=== PATIENT | female | born 1995 | race Caucasian/White ===

== ENCOUNTER 2017-06-12 06:59 | Inpatient (IN) | payer OTHER ==
[~2017-06-12] VITALS: Ht 170.2 cm; Wt 71.4 kg
[~2017-06-12 06:59] MED LIST: BACITRACIN 50,000 UNIT ONE; BUPIVACAINE/PF 0.5% ONE; EPINEPHRINE 1 MG/ML, 1ML ONE; THROMBIN 5,000 UNIT VIAL TP ONE
[2017-06-12 07:24] VITALS: BP 110/76
[2017-06-12 08:34] LABS: ASPARTATE AMINO TRANSFERASE 27 U/L (15-37); BLOOD UREA NITROGEN 10 mg/dL (7-18)
[2017-06-12 08:36] LABS: HCG UR LOT HCG7030192
[2017-06-12] MEDS ORDERED: PROPOFOL 10 MG/ML, 20ML ONE ×2 (08:51→09:10)
[2017-06-12] MEDS ORDERED: KETAMINE 10 MG/ML, 20ML ONE (09:00)
[2017-06-12] MEDS ORDERED: MIDAZOLAM 1 MG/ML, 2ML ONE (09:00)
[2017-06-12] MEDS: DROSPIRENONE ETHINYL ESTRADIOL PO SCH ×2 (09:00→19:13)
[2017-06-12] MEDS ORDERED: PROPOFOL 50 ML ONE ×3 (09:01→12:53)
[2017-06-12] MEDS ORDERED: FENTANYL PF 250 MCG/5ML ONE (09:01)
[2017-06-12 09:07] LABS: HCG UR OBC PASS
[2017-06-12] MEDS ORDERED: DEXAMETHASONE 4 MG/ML, 1ML ONE (09:10)
[2017-06-12] MEDS ORDERED: CEFAZOLIN 1,000 MG ONE (09:10)
[2017-06-12] MEDS ORDERED: ONDANSETRON 2MG/ML, 2ML ONE ×3 (09:10→11:40)
[2017-06-12] MEDS ORDERED: SCOPOLAMINE PATCH, 1.5MG PATCH.TD72 TD ONE ×2 (10:12→10:37)
[2017-06-12] MEDS ORDERED: LIDOCAINE GEL 2%, 5ML ONE (10:19)
[2017-06-12] MEDS ORDERED: ROCURONIUM 10 MG/ML,10ML ONE (10:20)
[2017-06-12] MEDS ORDERED: LIDOCAINE-MPF 2% ,5ML ONE ×2 (11:28)
[2017-06-12] MEDS ORDERED: HYDROmorphone 1 MG/ML, 1ML ONE (11:30)
[2017-06-12] MEDS ORDERED: NEOSTIGMINE 1 MG/ML, 10ML ONE (11:40)
[2017-06-12] MEDS ORDERED: GLYCOPYRROLATE 0.2MG/1ML, 5ML ONE (11:40)
[2017-06-12] MEDS ORDERED: ONDANSETRON 2MG/ML, 2ML IVPush PRN ×2 (12:00→14:30)
[2017-06-12] MEDS ORDERED: HYDROmorphone 1 MG/ML, 1ML IV PRN (12:00)
[2017-06-12] MEDS ORDERED: DIAZEPAM 5 MG/ML, 2ML IVPush PRN (12:00)
[2017-06-12] MEDS ORDERED: hydrALAzine 20 MG/ML, 1ML IV PRN (12:00)
[2017-06-12] MEDS ORDERED: MEPERIDINE/PF 25MG/0.5ML IVPush PRN (12:00)
[2017-06-12] MEDS ORDERED: OXYcodone 5 MG/5 ML ORAL.SOL UDC PO PRN (12:00)
[2017-06-12] MEDS ORDERED: LABETALOL 5MG/ML, 20ML IV PRN (12:00)
[2017-06-12] MEDS ORDERED: FENTANYL PF 100 MCG/2ML IV PRN (12:00)
[2017-06-12] MEDS ORDERED: MIDAZOLAM 1 MG/ML, 2ML IV PRN (12:00)
[2017-06-12] MEDS ORDERED: ALBUTEROL/IPRATROPIUM 2.5MG/0.5MG, 3 ML NPPB PRN (12:00)
[2017-06-12] MEDS ORDERED: LORazepam 2 MG/ML, 1ML IVPush PRN (12:00)
[2017-06-12] MEDS ORDERED: PROMETHAZINE 25 MG/ML, 1ML IV PRN (12:00)
[2017-06-12] MEDS ORDERED: ACETAMINOPHEN 325 MG TABLET PO PRN (12:00)
[2017-06-12] MEDS ORDERED: EPHEDRINE 50 MG/ML, 1ML ONE (13:17)
[2017-06-12] MEDS ORDERED: BUPIVACAINE/PF 0.25% ONE (13:22)
[2017-06-12] MEDS ORDERED: FENTANYL PF 100 MCG/2ML ONE ×2 (13:22→14:23)
[2017-06-12] MEDS ORDERED: OXYcodone 5 MG/5 ML ORAL.SOL UDC ONE (14:23)
[2017-06-12] MEDS ORDERED: ACETAMINOPHEN 650 MG/20.3 ML UDC ONE (14:23)
[2017-06-12] MEDS ORDERED: LABETALOL 5MG/ML, 20ML IVPush PRN (14:30)
[2017-06-12] MEDS ORDERED: DIPHENHYDRAMINE 50 MG CAPSULE PO PRN (14:30)
[2017-06-12] MEDS ORDERED: SENNA/DOCUSATE TABLET PO PRN (14:30)
[2017-06-12] MEDS ORDERED: BISACODYL 10 MG SUPP PR PRN (14:30)
[2017-06-12] MEDS ORDERED: PROMETHAZINE 25 MG/ML, 1ML IM PRN (14:30)
[2017-06-12] MEDS ORDERED: OXYcodone/APAP 5/325MG TABLET PO PRN (14:30)
[2017-06-12] MEDS ORDERED: HYDROcodone/APAP 5/325 TABLET PO PRN (14:30)
[2017-06-12] MEDS ORDERED: PHARMACY MAY ADJ FOR RENAL FX MC PRN (14:30)
[2017-06-12] MEDS ORDERED: DIPHENHYDRAMINE 50 MG/ML, 1ML IVPush PRN (14:30)
[2017-06-12] MEDS ORDERED: MAGNESIUM HYDROXIDE 8%, 30ML UDC PO PRN (14:30)
[2017-06-12 15:22] VITALS: BP 116/66
[2017-06-12] MEDS ORDERED: TOPI100T8 PO (15:45)
[2017-06-12] MEDS ORDERED: SERT100T5 PO (15:45)
[2017-06-12] MEDS: morphine SULFATE 10 MG/ML, 1ML IVPush PRN ×2 (16:32→17:29)
[2017-06-12] MEDS: D5%-0.9% NACL+KCL 20MEQ 1,000 ML IV SCH (16:35)
[2017-06-12] MEDS: CLINDAMYCIN PMX 600MG/50ML 50 ML IV SCH (16:35)
[2017-06-12] MEDS: METHOCARBAMOL 750 MG TABLET PO PRN (17:29)
[2017-06-12 18:30] VITALS: BP 105/56
[2017-06-12 18:41] VITALS: BP 105/56
[2017-06-12] MEDS: SERTRALINE 100MG TABLET PO SCH (19:12)
[2017-06-12] MEDS: TOPIRAMATE 100 MG TABLET PO SCH (20:21)
[2017-06-12] MEDS: SODIUM CHLORIDE FLUSH 10ML SYR IVF SCH (20:21)
[2017-06-12] MEDS: HYDROmorphone 2 MG/ML, 1ML IVPush PRN (22:02)
[2017-06-13] VITALS: BP 101/61
[2017-06-13] MEDS: D5%-0.9% NACL+KCL 20MEQ 1,000 ML IV SCH ×3 (00:12→19:40)
[2017-06-13] MEDS: CLINDAMYCIN PMX 600MG/50ML 50 ML IV SCH ×2 (00:12→07:47)
[2017-06-13 00:21] VITALS: BP 101/61
[2017-06-13] MEDS: HYDROmorphone 2 MG/ML, 1ML IVPush PRN ×3 (01:09→07:47)
[2017-06-13] MEDS: METHOCARBAMOL 750 MG TABLET PO PRN (04:16)
[2017-06-13 04:20] VITALS: BP 99/63
[2017-06-13 04:47] LABS: HEMATOCRIT 26.8 % (34.6-47.8); HEMOGLOBIN 9.3 g/dL (11.7-16.4); WHITE BLOOD COUNT 7.5 x10^3/uL (4.5-13.2)
[2017-06-13 04:55] LABS: BLOOD UREA NITROGEN 3 mg/dL (7-18)
[2017-06-13 07:46] VITALS: BP 97/59
[2017-06-13] MEDS: SERTRALINE 100MG TABLET PO SCH (07:47)
[2017-06-13] MEDS: SODIUM CHLORIDE FLUSH 10ML SYR IVF SCH ×2 (07:48→21:36)
[2017-06-13] MEDS ORDERED: DROSPIRENONE ETHINYL ESTRADIOL HOMEMEDPO SCH (09:00)
[2017-06-13] MEDS ORDERED: SERTRALINE 100MG TABLET PO SCH (09:00)
[2017-06-13] MEDS ORDERED: KETOROLAC 30 MG/1 ML IVPush PRN (10:00)
[2017-06-13] MEDS ORDERED: CYCLOBENZAPRINE 10 MG TABLET PO PRN (10:00)
[2017-06-13] MEDS: HYDROmorphone 2MG TABLET PO PRN ×4 (10:34→21:40)
[2017-06-13 13:31] VITALS: BP 107/70
[2017-06-13] MEDS ORDERED: ONDANSETRON ODT 4 MG PO PRN (19:00)
[2017-06-13 20:59] VITALS: BP 106/65
[2017-06-13] MEDS: [UNRECOGNIZED DRUG - OTHER] HOMEMEDPO SCH (21:00)
[2017-06-13] MEDS: TOPIRAMATE 100 MG TABLET PO SCH (21:36)
[2017-06-13] MEDS: METHOCARBAMOL 750 MG TABLET PO SCH (21:36)
[2017-06-14] MEDS: HYDROmorphone 2MG TABLET PO PRN ×5 (01:41→21:02)
[2017-06-14 02:46] VITALS: BP 107/69
[2017-06-14] MEDS: METHOCARBAMOL 750 MG TABLET PO SCH ×4 (06:08→21:02)
[2017-06-14 06:11] LABS: HEMATOCRIT 27.4 % (34.6-47.8); HEMOGLOBIN 9.4 g/dL (11.7-16.4); WHITE BLOOD COUNT 7.2 x10^3/uL (4.5-13.2)
[2017-06-14] MEDS: D5%-0.9% NACL+KCL 20MEQ 1,000 ML IV SCH ×2 (06:30→16:36)
[2017-06-14 07:38] VITALS: BP 98/61
[2017-06-14] MEDS: SODIUM CHLORIDE FLUSH 10ML SYR IVF SCH ×2 (09:00→21:01)
[2017-06-14] MEDS: SERTRALINE 100MG TABLET PO SCH (10:05)
[2017-06-14 12:42] VITALS: BP 98/62
[2017-06-14 20:28] VITALS: BP 99/62
[2017-06-14] MEDS: [UNRECOGNIZED DRUG - OTHER] HOMEMEDPO SCH (21:00)
[2017-06-14] MEDS: TOPIRAMATE 100 MG TABLET PO SCH (21:02)
[2017-06-15 01:34] VITALS: BP 102/62
[2017-06-15] MEDS: HYDROmorphone 2MG TABLET PO PRN ×3 (01:35→09:34)
[2017-06-15] MEDS: D5%-0.9% NACL+KCL 20MEQ 1,000 ML IV SCH (01:39)
[2017-06-15] MEDS: METHOCARBAMOL 750 MG TABLET PO SCH ×2 (05:35→10:52)
[2017-06-15 05:59] LABS: HEMATOCRIT 29.5 % (34.6-47.8); HEMOGLOBIN 10.1 g/dL (11.7-16.4); WHITE BLOOD COUNT 7.2 x10^3/uL (4.5-13.2)
[2017-06-15 07:19] VITALS: BP 96/62
[2017-06-15] MEDS: SERTRALINE 100MG TABLET PO SCH (09:34)
[2017-06-15] MEDS: SODIUM CHLORIDE FLUSH 10ML SYR IVF SCH (09:48)
[2017-06-15] MEDS ORDERED: ONDA4TAB7 PO (10:28)
[2017-06-15] MEDS ORDERED: DOXY100T PO (10:29)
[2017-06-15] MEDS ORDERED: METH750T87 PO (10:31)
[2017-06-15] MEDS ORDERED: HYDR4TAB48 PO (10:32)
[2017-06-15] MEDS ORDERED: POLY17PO5 PO (11:01)
== END 2017-06-15 11:09 | disposition home or self-care (01) | DRG 460 ==
LOC: 4NOR 06:59 → EDSTATUS 10:30 → DCLOUNGE 06-15 10:58
PROVIDERS: ADMIT Neurological Surgery; ATTEND Neurological Surgery
PROC: 0SG30A0 Fusion of Lumbosacral Joint with Interbody Fusion Device, Anterior Approach, Anterior Column, Open Approach (ICD-10-PCS; 2017-06-12)
PROC: 0SB40ZZ Excision of Lumbosacral Disc, Open Approach (ICD-10-PCS; 2017-06-12)
PROC: 4A11X4G Monitoring of Peripheral Nervous Electrical Activity, Intraoperative, External Approach (ICD-10-PCS; principal; 2017-06-12 10:30)
DX: M48.07 Spinal stenosis, lumbosacral region (principal); M51.27 Other intervertebral disc displacement, lumbosacral region; M54.18 Radiculopathy, sacral and sacrococcygeal region; M51.37 Other intervertebral disc degeneration, lumbosacral region; Z88.1 Allergy status to other antibiotic agents; Z79.899 Other long term (current) drug therapy
CPT/HCPCS: 36415; 72100; 72131; 74000; 80048; 80053; 81025; 82040; 85025; 86850; 86900; C1713; J0171; J0690; J1100; J1170; J1885; J2250; J2405; J2704; J2710; J3010; J3490; C1751; C1762; J2270; J3480